=== PATIENT | female | born 1980 ===

== ENCOUNTER 2016-11-27 13:00 | Emergency (ER) | payer OTHER ==
[2016-11-27 14:16] VITALS: O2SAT 98
[2016-11-27 14:46] VITALS: BP 116/76; PULSE 82; RESP 18; TEMP 98.2
--- NOTE | 2016-11-27 14:46 | C.PDOC ---
History Of Present Illness 36 year old female with no past medical history presents with pain and tenderness to vaginal area x5 days. She states she has a swollen area on her vagina that is very tenderness it is difficult to walk. She did not take anything to help the pain. This has never happened to her before. She denies fever/chills, vaginal bleeding or discharge. She has no other complaints. She has an appointment with a mixed crop and livestock farm worker this coming Thursday. Time Seen by Provider: 11/27/16 13:28 Chief Complaint (Nursing): Abnormal Skin Integrity History Per: Patient History/Exam Limitations: no limitations Onset/Duration Of Symptoms: Days Current Symptoms Are (Timing): Still Present Quality Of Symptoms: Painful, Swollen Severity: Moderate Pain Scale Rating Of: 8 Past Medical History Vital Signs: Last Vital Signs Temp 98.8 F 11/27/16 14:15 Pulse 84 11/27/16 14:15 Resp 17 11/27/16 14:15 BP 121/80 11/27/16 14:15 Pulse Ox 98 11/27/16 14:15 - Medical History PMH: No Chronic Diseases Surgical History: No Surg Hx Family History: States: Unknown Family Hx - Social History Hx Tobacco Use: No Hx Alcohol Use: No Hx Substance Use: No Review Of Systems Constitutional: Negative for: Fever, Chills Cardiovascular: Negative for: Chest Pain, Palpitations Respiratory: Negative for: Cough, Shortness of Breath Gastrointestinal: Negative for: Nausea, Vomiting, Abdominal Pain Genitourinary: Positive for: Other (tender lesion on vagina ). Negative for: Dysuria Skin: Negative for: Rash, Lesions Neurological: Negative for: Weakness, Numbness Physical Exam - Physical Exam Appears: Well, Non-toxic, No Acute Distress Skin: Normal Color, Warm, Dry Head: Atraumatic, Normacephalic Neck: Normal Cardiovascular: Rhythm Regular Respiratory: Normal Breath Sounds Gastrointestinal/Abdominal: Bowel Sounds, Soft, No Tenderness Pelvic: Other (large Batholin abscess on R labia ) Extremity: No Tenderness Neurological/Psych: Oriented x3, Normal Speech, Normal Cognition ED Course And Treatment O2 Sat by Pulse Oximetry: 98 - Incision & Drainage Of Abscess Prep Used: Sterile Water, Betadine Procedure: Incised W/Scalpel Blade#: (11), Drained Pus, Irrigated Cavity W/ Saline (Nitrous oxide used, word catheter placed R labia) Medical Decision Making Medical Decision Making: Plan: Bartholian abscess on R labia: I/D performed under sterile precautions. NO used for anesthesia. Vitals stable. Puss expressed. Area does not looked infected, no fever/chills. Word Catheter placed in R labia. Patient is to follow up with her mixed crop and livestock farm worker this coming Thursday. Disposition - Disposition Referrals: [facility] [Outside] Disposition: HOME/ ROUTINE Disposition Time: 14:58 Condition: GOOD Additional Instructions: Patient is to take Tylenol as needed for pain. Patient was given instructions about the drain that was placed. She is to follow up with her mixed crop and livestock farm worker this coming Thursday on 12/02/16. She is to return to the ED if the pain becomes worse , if the area looks infected, or if she develops fever or chills. Instructions: Bartholin Cyst (ED), Incision and Drainage (ED) Forms: Gen Discharge Inst Macedonian - Clinical Impression Clinical Impression: Bartholin's gland abscess
== END 2016-11-27 15:20 | disposition home or self-care (01) ==
LOC: C.ER 13:00
DX: N75.1 Abscess of Bartholin's gland (principal)